=== PATIENT | male | born 1960 | race African-American/Black ===

== ENCOUNTER 2018-03-29 22:33 | Emergency (ER) | payer MEDICARE, MEDICAID ==
[~2018-03-29] VITALS: Ht 180.3 cm; Wt 85.0 kg
[~2018-03-29 22:33] MED LIST: ASPI-518
[2018-03-29 22:47] VITALS: BP 111/65
[2018-03-30] MEDS ORDERED: LIDOCAINE HCL 1% 20ML VIAL (Pyxis) INJ INFIL ONE (01:00)
[2018-03-30] MEDS ORDERED: LIDOCAINE HCL/PF 1% 10 MG/ML 5ML VIAL IJ NR (01:15)
== END 2018-03-30 02:10 | disposition home or self-care (01) ==
LOC: ER 22:35
DX: L02.811 Cutaneous abscess of head [any part, except face] (principal); I10 Essential (primary) hypertension; F12.90 Cannabis use, unspecified, uncomplicated
CPT/HCPCS: 10060; 99283; J3490

== ENCOUNTER 2018-04-21 23:13 | Emergency (ER) | payer MEDICARE, MEDICAID ==
[~2018-04-21] VITALS: Ht 170.2 cm; Wt 85.8 kg
[2018-04-22 00:16] LABS: CLARITY URINE CLOUDY (CLEAR); COLOR URINE YELLOW (YELLOW); KETONES URINE NEGATIVE (NEGATIVE); LEUKOCYTE ESTERASE URINE 1+ (NEGATIVE); NITRITE URINE NEGATIVE (NEGATIVE); OCCULT BLOOD URINE TRACE (NEGATIVE); PROTEIN URINE NEGATIVE (NEGATIVE); SPECIFIC GRAVITY URINE 1.023 (1.005-1.030)
[2018-04-22 01:03] LABS: BASOPHILS % 0.7 % (0.0-2.0); EOSINOPHILS % 0.8 % (0.0-5.0); HEMATOCRIT. 41.2 % (42.0-52.0); HEMOGLOBIN. 14.1 g/dL (14.0-18.0); LYMPHOCYTES % 37.9 % (20.0-50.0); MEAN CORPUSCULAR HEMOGLOBIN 32.3 pg (28.0-32.0); MEAN CORPUSCULAR VOLUME 94.4 fL (80.0-94.0); MEAN PLATELET VOLUME 8.8 fl (7.4-10.4); MONOCYTES % 10.8 % (2.0-8.0); NEUTROPHILS % 49.8 % (40.0-76.0); PLATELET 185 x1000/uL (130-400); RED BLOOD CELL COUNT 4.37 mill/uL (4.7-6.1); RED CELL DISTRIBUTION WIDTH 14.1 % (11.6-14.6)
[2018-04-22 01:12] LABS: CHLORIDE 103 mEq/L (98-107)
[2018-04-22] MEDS ORDERED: CEFTRIAXONE 1 G PREMIX 50 ML IV NR (02:00)
[2018-04-22 03:06] VITALS: BP 111/59
== END 2018-04-22 03:13 | disposition home or self-care (01) ==
LOC: ER 23:13
DX: N39.0 Urinary tract infection, site not specified (principal); N45.1 Epididymitis; N43.3 Hydrocele, unspecified; K40.20 Bilateral inguinal hernia, without obstruction or gangrene, not specified as recurrent; I10 Essential (primary) hypertension; F12.10 Cannabis abuse, uncomplicated; Z87.891 Personal history of nicotine dependence; Z79.82 Long term (current) use of aspirin
CPT/HCPCS: 36415; 74176; 76870; 80053; 81003; 83690; 85025; 93976; 96365; 99285; J0696

== ENCOUNTER 2018-06-20 05:21 | Day surgery (SDC) | payer MEDICARE, MEDICAID ==
[~2018-06-20] VITALS: Ht 180.3 cm; Wt 83.9 kg
[2018-06-20] MEDS ORDERED: SKIN ADHESIVE 0.7 GM EA TOP ONE ×2 (06:03→08:40)
[2018-06-20] MEDS ORDERED: INDOCYANINE GREEN 25 MG VIAL IV ONE (06:04)
[2018-06-20] MEDS ORDERED: BUPIVACAINE HCL 0.5% (5MG/ML) 50ML ONE (06:04)
[2018-06-20] MEDS ORDERED: CHLO25TA2 PO (07:10)
[2018-06-20] MEDS ORDERED: BENA20TA10 PO (07:10)
[2018-06-20] MEDS ORDERED: HYDROMORPHONE HCL/PF 2MG/ML CPJ IV PRN (10:45)
[2018-06-20] MEDS ORDERED: ONDANSETRON HCL 4MG/2ML INJ IV PRN (10:45)
[2018-06-20] MEDS ORDERED: EPHEDRINE SULFATE 50MG/ML VIAL IM ONE (11:30)
[2018-06-20] MEDS ORDERED: EPHEDRINE SULFATE 50MG/ML VIAL IV ONE (11:30)
== END 2018-06-20 14:30 | disposition home or self-care (01) ==
LOC: OR 05:21
PROVIDERS: ATTEND Surgery
DX: K40.90 Unilateral inguinal hernia, without obstruction or gangrene, not specified as recurrent (principal); I10 Essential (primary) hypertension; Z79.899 Other long term (current) drug therapy
CPT/HCPCS: 49650; C1781; J2405; J3490; S2900; J7040; Q9957

== ENCOUNTER → 2019-02-19 | Outpatient (CLI) | payer MEDICARE, MEDICAID ==
[~2019-02-19] MED LIST changes: -ASPI-518; +BENA20TA10 PO; +CHLO25TA2 PO
== END | disposition home or self-care (01) ==
LOC: RAD 11:11
PROVIDERS: ATTEND Family Medicine
DX: T14.8XXA Other injury of unspecified body region, initial encounter (principal); W34.00XA Accidental discharge from unspecified firearms or gun, initial encounter; Y93.89 Activity, other specified; Y92.89 Other specified places as the place of occurrence of the external cause; Y99.8 Other external cause status
CPT/HCPCS: 73590

== ENCOUNTER 2025-03-07 02:49 | Emergency (ER) | payer MEDICARE, MEDICAID ==
[~2025-03-07] VITALS: Ht 180.3 cm; Wt 94.8 kg
[~2025-03-07 02:49] MED LIST changes: +BENA-8 PO; -BENA20TA10 PO
[2025-03-07 02:58] VITALS: O2SAT 100
[2025-03-07] MEDS: KETOROLAC 15MG/ML VIAL IM ONE (03:45)
[2025-03-07] MEDS ORDERED: GUAI-450 MT (04:18)
[2025-03-07 04:54] VITALS: BP 143/80; PULSE 86; RESP 18; TEMP 37.2; O2SAT 99
== END 2025-03-07 04:57 | disposition home or self-care (01) ==
LOC: ER 02:49
DX: B34.9 Viral infection, unspecified (principal); F12.90 Cannabis use, unspecified, uncomplicated; Z79.899 Other long term (current) drug therapy
CPT/HCPCS: 99283; 96372; J1885